=== PATIENT | male | born 1945 | race Caucasian/White ===

== ENCOUNTER → 2019-10-16 | Outpatient (CLI) | payer MEDICARE ==
[~2019-10-16] MED LIST: CYAN100050 PO; ELIQ5TAB PO; EQLTAB27 PO; FLAG500T PO; GASTROGRAFIN SOLUTION 30ML (Q9963) ONE; HYDR25TAB PO; ISOVUE-370 76% 100ML VIAL ONE; LISI-538 PO; LISI10TA4 PO; PROB250C PO; PURE500C5 PO; REDCAP3 PO
--- NOTE | 2019-12-04 11:00 | REP ---
CT OF THE CHEST, ABDOMEN AND PELVIS WITH IV AND BOWEL CONTRAST: HISTORY: Chronic leukemia. There are no comparison studies. CT OF THE CHEST WITH IV CONTRAST: There are no lung masses or nodules. There are no infiltrates or pleural effusions. There is no lymph node enlargement in the mediastinum, right or left lucie or right or left axilla. The thoracic aorta is unremarkable except for occasional small calcific plaques. Cardiac size is normal. There is no pericardial effusion. No lytic, blastic or destructive skeletal changes are identified. IMPRESSION: Essentially negative CT study of the chest. CT OF THE ABDOMEN AND PELVIS WITH IV AND BOWEL CONTRAST: There are no comparison studies. FINDINGS: There is a tiny 3 mm hypodensity in the dome of the liver, nonspecific. The hepatic parenchyma is otherwise homogeneous. There is a faintly visible 1.5 cm density near the neck of the gallbladder which could represent a faintly visible gallbladder calculus or a sludge ball. The gallbladder is otherwise unremarkable. (Please See Next Page) The pancreas is unremarkable. The spleen is borderline enlarged, measuring 16 cm in craniocaudad length and is homogeneous and otherwise unremarkable. There is no adrenal nodule or mass. There are no renal masses or cysts. No hydronephrosis or perinephric stranding. The abdominal aorta is unremarkable. There is no periaortic adenopathy or mass. There is wall thickening of the terminal ileum with luminal narrowing. This is nonspecific and could represent peristalsis, inflammation (chronic vs acute) or neoplasm. There are multiple diverticula in the descending colon and sigmoid colon. There is no pericolonic inflammation or abscess. There is no ascites. There is no bowel distention or obstruction. PELVIS: The bladder is unremarkable. There is no ascites. There is no adenopathy. There are small calcific densities in the femoral heads bilaterally, nonspecific, bone islands versus skeletal blastic metastases as well as a focal calcific density in the left acetabulum. IMPRESSION: There is wall thickening and luminal narrowing of the terminal ileum. This is nonspecific and could represent acute versus chronic inflammation versus neoplasm. There is no pelvic or abdominal adenopathy. There is no ascites. There is a gallbladder calculus versus sludge ball. There are small calcific densities in the femoral heads bilaterally and in the left acetabulum. These could be bone islands or blastic metastases. Diverticulosis without CT evidence of diverticulitis. Spleen is borderline enlarged. There are degenerative changes throughout the lumbar spine. MTDD
== END ==
LOC: M RAD 08:01
PROVIDERS: ATTEND Internal Medicine Hematology & Oncology
DX: C91.10 Chronic lymphocytic leukemia of B-cell type not having achieved remission (principal); D72.829 Elevated white blood cell count, unspecified; Z86.718 Personal history of other venous thrombosis and embolism
CPT/HCPCS: 74177; Q9963; Q9967

== ENCOUNTER → 2020-01-20 | Outpatient (CLI) | payer MEDICARE ==
[~2020-01-20] MED LIST changes: -GASTROGRAFIN SOLUTION 30ML (Q9963) ONE; -ISOVUE-370 76% 100ML VIAL ONE
== END ==
LOC: M LABSMTC 09:56
PROVIDERS: ATTEND Anesthesiology
DX: Z01.818 Encounter for other preprocedural examination (principal)
CPT/HCPCS: C9803; U0003

== ENCOUNTER 2020-01-25 10:45 | Day surgery (SDC) | payer MEDICARE ==
[~2020-01-25] VITALS: Ht 177.8 cm; Wt 111.5 kg
[~2020-01-25 10:45] MED LIST changes: +LIDOCAINE 2% 100MG/5ML SDV (FOR ANES.) As Ordered ONE; +NS 1,000 ML IV ONE; +propofoL 200 MG/20 ML VIAL As Ordered ONE
--- NOTE | 2020-01-25 12:15 | ROOR ---
Patient Name: Raleigh Sigala Procedure Date: 01/25/2020 11:55 AM Date of : 1945 Age: 74 Room: [facility] Gender: Male Note Status: Finalized Procedure: Total Colonoscopy to cecum + Bx. Indications: High risk colon cancer surveillance: Personal history of colonic polyps, Last colonoscopy: 2015 Providers: Navarro Lyons MD Referring MD: FERNANDO ROSENTHAL DO Requesting Provider: Medicines: Monitored Anesthesia Care Complications: No immediate complications. Procedure: Pre-Anesthesia Assessment: - The heart rate, respiratory rate, oxygen saturations, blood pressure, adequacy of pulmonary ventilation, and response to care were monitored throughout the procedure. The Colonoscope was introduced through the anus and advanced to the cecum, identified by appendiceal orifice and ileocecal valve. The colonoscopy was performed without difficulty. The patient tolerated the procedure well. The quality of the bowel preparation was excellent. Findings: The perianal and digital rectal examinations were normal. Non-bleeding internal hemorrhoids were found during retroflexion. The hemorrhoids were small and Grade I (internal hemorrhoids that do not prolapse). Multiple small and large-mouthed diverticula were found in the recto-sigmoid colon, sigmoid colon and descending colon. The exam was otherwise without abnormality on direct and retroflexion views. An area of moderately nodular mucosa was found at the appendiceal orifice. Biopsies were taken with a cold forceps for histology. The exam was otherwise without abnormality. Impression: - Non-bleeding internal hemorrhoids. - Diverticulosis in the recto-sigmoid colon, in the sigmoid colon and in the descending colon. - The examination was otherwise normal on direct and retroflexion views. - Nodular mucosa at the appendiceal orifice. Biopsied. - The examination was otherwise normal. - The exam was otherwise normal to the cecum. Recommendation: - Patient has a contact number available for emergencies. The signs and symptoms of potential delayed complications were discussed with the patient. Return to normal activities tomorrow. Written discharge instructions were provided to the patient. - High fiber diet. - Discharge patient to home. - Continue present medications. - Await pathology results. - Telephone GI clinic for pathology results in 1 week. - Return to referring physician. - The findings and recommendations were discussed with the patient. Navarro Lyons MD Navarro Lyons MD 01/25/2020 12:14:39 PM Electronically signed by Navarro Lyons MD Number of Addenda: 0 Note Initiated On: 01/25/2020 11:55 AM Estimated Blood Loss: Estimated blood loss: none.
[2020-01-25 12:41] VITALS: BP 127/61
== END 2020-01-25 12:43 | disposition home or self-care (01) ==
LOC: M OPP 10:45
PROVIDERS: ATTEND Internal Medicine Gastroenterology
DX: Z12.11 Encounter for screening for malignant neoplasm of colon (principal); Z86.010 Personal history of colon polyps; K63.89 Other specified diseases of intestine; K57.30 Diverticulosis of large intestine without perforation or abscess without bleeding; K64.0 First degree hemorrhoids; Z79.899 Other long term (current) drug therapy; Z87.891 Personal history of nicotine dependence

== ENCOUNTER → 2020-04-08 | Outpatient (REF) | payer MEDICARE ==
[~2020-04-08] MED LIST changes: -LIDOCAINE 2% 100MG/5ML SDV (FOR ANES.) As Ordered ONE; -NS 1,000 ML IV ONE; -propofoL 200 MG/20 ML VIAL As Ordered ONE
== END ==
LOC: M LAB REF 08:44
PROVIDERS: ATTEND Dermatology
DX: C44.319 Basal cell carcinoma of skin of other parts of face (principal); L90.5 Scar conditions and fibrosis of skin

== ENCOUNTER → 2022-04-12 | Outpatient (CLI) | payer MEDICARE ==
[~2022-04-12] MED LIST changes: +ASCO500C3 PO; +HYDR-3490 PO; -HYDR25TAB PO; -LISI-538 PO; +LISI10TA22 PO; -LISI10TA4 PO; +LISI20TA33 PO; -PURE500C5 PO
== END ==
LOC: M RAD 10:22
PROVIDERS: ATTEND Surgery Vascular Surgery
DX: I65.23 Occlusion and stenosis of bilateral carotid arteries (principal)

== ENCOUNTER → 2022-09-06 | Outpatient (CLI) | payer MEDICARE ==
[~2022-09-06] MED LIST changes: +CYAN-1 PO; -CYAN100050 PO
== END ==
LOC: M PLARAD 12:19
PROVIDERS: ATTEND Nurse Practitioner Adult Health
DX: E29.1 Testicular hypofunction (principal)

== ENCOUNTER → 2022-09-26 | Outpatient (CLI) | payer MEDICARE | LOC: M RAD 12:34 | PROVIDERS: ATTEND Nurse Practitioner Adult Health | DX: I82.4Y2 Acute embolism and thrombosis of unspecified deep veins of left proximal lower extremity (principal) ==

== ENCOUNTER → 2023-02-15 | Outpatient (REF) | payer MEDICARE ==
[2023-02-15 18:50] LABS: APPEARANCE, URINE HAZY (CLEAR); BACTERIA, URINE AUTO NEGATIVE (NEGATIVE); BILIRUBIN, URINE AUTO NEGATIVE (NEGATIVE); BLOOD, URINE BLOOD NEGATIVE (NEGATIVE); COLOR, URINE YELLOW (YELLOW); GLUCOSE, URINE (UA) AUTO NEGATIVE (NEGATIVE); KETONE, URINE AUTO NEGATIVE (NEGATIVE); LEUKOCYTE ESTERASE, URINE AUTO NEGATIVE (NEGATIVE); MUCUS, URINE SMALL (NEGATIVE); NITRITE, URINE AUTO NEGATIVE (NEGATIVE); PROTEIN, URINE AUTO 1+ mg/dL (NEGATIVE); RBC, URINE AUTO 2 /HPF (0-3); SPECIFIC GRAVITY URINE AUTO 1.021 (1.002-1.035); SQUAMOUS EPITHELIAL CELL UR AU 1 /HPF (0-6); UROBILINOGEN, URINE AUTO 0.2 mg/dL (0.0-2.0); WBC, URINE AUTO 1 /HPF (0-3)
[2023-02-15 19:08] LABS: BASO % 0.2 % (0.0-1.0); EOS % 0.1 % (0.0-3.0); HEMATOCRIT 39.6 % (42.0-52.0); HEMOGLOBIN 12.8 g/dl (13.5-17.5); LYMPH # 9.9 10^3/uL (1.5-5.0); LYMPH % 70.4 % (24.0-44.0); MEAN CORPUSCULAR HEMOGLOBIN 31.8 pg (27.0-33.0); MEAN CORPUSCULAR HGB CONC 32.3 g/dl (32.0-36.5); MEAN CORPUSCULAR VOLUME 98.5 fl (80.0-96.0); MONO # 0.9 10^3/uL (0.0-0.8); MONO % 6.3 % (2.0-8.0); NEUTROPHILS # 3.2 10^3/uL (1.5-8.5); NEUTROPHILS % 22.9 % (36.0-66.0); PLATELET COUNT, AUTOMATED 128 10^3/uL (150-450); RED BLOOD COUNT 4.02 10^6/uL (4.30-6.10); WHITE BLOOD COUNT 14.1 10^3/uL (4.0-10.0)
[2023-02-15 19:12] LABS: TOTAL PROTEIN,RANDOM URINE 78.6 MG/DL (0.0-14.0)
[2023-02-15 19:13] LABS: ERYTHROCYTE SEDIMENTATION RATE 18 mm/hr (0-20); URIC ACID 7.8 MG/DL (3.7-9.2)
[2023-02-15 19:15] LABS: C REACTIVE PROTEIN QUANTITATIV < 0.40 MG/DL (<1.0)
[2023-02-15 19:16] LABS: COMPLEMENT C4 20.9 MG/DL (12-36); CREATININE,RANDOM URINE 170.5 MG/DL; IMMUNOGLOBULIN A 105.6 MG/DL (40-350); IMMUNOGLOBULIN G 1528 MG/DL (650-1600)
[2023-02-15 19:17] LABS: ALBUMIN 4.4 G/DL (3.2-5.2); ALKALINE PHOSPHATASE 61 U/L (46-116); ALT/SGPT 26 U/L (7.0-40); AST/SGOT 19 U/L (<34); BILIRUBIN,TOTAL 0.5 MG/DL (0.3-1.2); BLOOD UREA NITROGEN 30 MG/DL (9-23); CALCIUM LEVEL 9.3 MG/DL (8.3-10.6); CARBON DIOXIDE LEVEL 26 MMOL/L (20-31); CHLORIDE LEVEL 105 MMOL/L (98-107); CREATININE FOR GFR 1.13 MG/DL (0.70-1.30); GLOMERULAR FILTRATION RATE > 60.0 (>42); GLUCOSE, FASTING 96 MG/DL (74-106); POTASSIUM SERUM 4.6 MMOL/L (3.5-5.1); SODIUM LEVEL 139 MMOL/L (136-145); TOTAL PROTEIN 7.6 G/DL (5.7-8.2)
[2023-02-15 19:56] LABS: HEPATITIS C VIRUS ABY INDEX 0.09 INDEX (<0.8)
[2023-02-15 19:57] LABS: HEPATITIS B CORE ANTIBODY IGM NEGATIVE (NEGATIVE)
[2023-02-23 08:10] LABS: COMPLEMENT TOTAL (CH50) > 60 U/mL (>41)
== END ==
LOC: M SFHCRHEU 12:53
PROVIDERS: ATTEND Internal Medicine Rheumatology
DX: R76.8 Other specified abnormal immunological findings in serum (principal); E79.0 Hyperuricemia without signs of inflammatory arthritis and tophaceous disease; M25.50 Pain in unspecified joint; Z79.01 Long term (current) use of anticoagulants; Z79.899 Other long term (current) drug therapy

== ENCOUNTER → 2023-02-20 | Outpatient (CLI) | payer MEDICARE | LOC: M RAD 11:23 | PROVIDERS: ATTEND Internal Medicine Rheumatology | DX: R76.8 Other specified abnormal immunological findings in serum (principal); M25.50 Pain in unspecified joint ==

== ENCOUNTER → 2023-06-19 | Outpatient (CLI) | payer MEDICARE | LOC: M RAD 11:12 | PROVIDERS: ATTEND Surgery Vascular Surgery | DX: I65.23 Occlusion and stenosis of bilateral carotid arteries (principal) ==

== ENCOUNTER → 2024-06-10 | Outpatient (CLI) | payer MEDICARE ==
[~2024-06-10] MED LIST changes: +B-122500 PO; +GNP250TA9 PO
== END ==
LOC: M RAD 10:51
PROVIDERS: ATTEND Surgery Vascular Surgery
DX: I65.23 Occlusion and stenosis of bilateral carotid arteries (principal)

== ENCOUNTER 2024-12-28 11:36 | Day surgery (SDC) | payer MEDICARE ==
[~2024-12-28] VITALS: Ht 172.7 cm; Wt 105.7 kg
[~2024-12-28 11:36] MED LIST changes: +LIDOCAINE 2% 100 MG/5 ML SDV (FOR ANES.) As Ordered ONE; +THERTAB52 PO
[2024-12-28 13:35] VITALS: BP 168/74; TEMP 97.1; O2SAT 95
== END 2024-12-28 13:45 | disposition home or self-care (01) ==
LOC: M OPP 11:36
PROVIDERS: ATTEND Internal Medicine Gastroenterology
DX: Z12.11 Encounter for screening for malignant neoplasm of colon (principal); C20 Malignant neoplasm of rectum; K56.690 Other partial intestinal obstruction; K57.30 Diverticulosis of large intestine without perforation or abscess without bleeding; K64.0 First degree hemorrhoids; Z86.0100 Personal history of colon polyps, unspecified; Z79.01 Long term (current) use of anticoagulants; Z79.899 Other long term (current) drug therapy

== ENCOUNTER → 2025-01-19 | Outpatient (CLI) | payer MEDICARE ==
[~2025-01-19] MED LIST changes: -LIDOCAINE 2% 100 MG/5 ML SDV (FOR ANES.) As Ordered ONE
== END ==
LOC: M PLARAD 11:42
PROVIDERS: ATTEND Specialist
DX: C20 Malignant neoplasm of rectum (principal)
CPT/HCPCS: 78815; A9552

== ENCOUNTER → 2025-01-23 | Outpatient (CLI) | payer MEDICARE ==
[~2025-01-23] VITALS: Ht 177.8 cm; Wt 102.2 kg
[2025-01-23 11:45] VITALS: TEMP 98.4
[2025-01-23] MEDS: ceFAZolin SODIUM 2 GM in DEXTROSE 5% (D5W) ADV/MINI-BAG 50 ML IV ONE (12:22)
[2025-01-23] MEDS: NS (Normal Saline) 0.9% 1,000 ML IV SCH (12:23)
[2025-01-23] MEDS: MIDAZOLAM INJ 2 MG/2 ML VIAL IV PRN (13:58)
[2025-01-23] MEDS: LIDOCAINE 1% MDV 20 ML VIAL SC SCH (14:06)
[2025-01-23 14:50] VITALS: BP 150/62; O2SAT 99
== END ==
LOC: M IRPRO 11:25
PROVIDERS: ATTEND Internal Medicine Medical Oncology
DX: C20 Malignant neoplasm of rectum (principal)
CPT/HCPCS: 36561; 76937; 77001; 99152; J0688; J1642; J2250; J3010

== ENCOUNTER → 2025-01-28 | Outpatient (CLI) | payer MEDICARE ==
[~2025-01-28] MED LIST changes: +PROHANCE 279.3MG/ML 15ML VIAL As Ordered ONE; +PROHANCE 279.3MG/ML 5ML VIAL As Ordered ONE
== END ==
LOC: M RAD 07:44
PROVIDERS: ATTEND Specialist
DX: C20 Malignant neoplasm of rectum (principal); R59.0 Localized enlarged lymph nodes; N40.0 Benign prostatic hyperplasia without lower urinary tract symptoms; K40.90 Unilateral inguinal hernia, without obstruction or gangrene, not specified as recurrent
CPT/HCPCS: 72197; A9579

== ENCOUNTER → 2025-02-08 | Outpatient (POV) | payer MEDICARE ==
[~2025-02-08] MED LIST changes: +ONDA-84 PO; -PROHANCE 279.3MG/ML 15ML VIAL As Ordered ONE; -PROHANCE 279.3MG/ML 5ML VIAL As Ordered ONE; +RED600CA7 PO; -REDCAP3 PO
== END ==
LOC: M IRPOV 11:00 → EDSTATUS 03-22 12:23
PROVIDERS: ATTEND Registered Nurse School
DX: Z45.2 Encounter for adjustment and management of vascular access device (principal); C20 Malignant neoplasm of rectum; Z79.01 Long term (current) use of anticoagulants; Z79.899 Other long term (current) drug therapy; Z87.891 Personal history of nicotine dependence

== ENCOUNTER 2025-02-10 15:12 | Outpatient (RCR) | payer MEDICARE ==
[~2025-02-10 15:12] MED LIST changes: -ONDA-84 PO
[2025-02-15] MEDS ORDERED: PROCHLORPERAZINE 5MG TAB PO SCH
[2025-02-17] MEDS ORDERED: PROCHLORPERAZINE 5MG TAB PO SCH
[2025-02-18 11:46] LABS: BASO # 0.0 10^3/uL (0.0-0.2); BASO % 0.1 % (0.0-1.0); EOS # 0.0 10^3/uL (0.0-0.5); EOS % 0.2 % (0.0-3.0); LYMPH # 6.4 10^3/uL (1.5-5.0); LYMPH % 62.8 % (24.0-44.0); MONO # 0.4 10^3/uL (0.0-0.8); MONO % 3.6 % (2.0-8.0); NEUTROPHILS # 3.4 10^3/uL (1.5-8.5); NEUTROPHILS % 33.2 % (36.0-66.0); PLATELET COUNT, AUTOMATED 122 10^3/uL (150-450)
[2025-02-18 12:14] LABS: ALT/SGPT 21.0 U/L (7.0-40); AST/SGOT 20.0 U/L (<34); CALCIUM LEVEL 9.5 MG/DL (8.3-10.6); CARBON DIOXIDE LEVEL 28.0 MMOL/L (20-31); CHLORIDE LEVEL 106.0 MMOL/L (98-107); CREATININE FOR GFR 1.1 MG/DL (0.70-1.30); GLOMERULAR FILTRATION RATE 69.1 (>42); POTASSIUM SERUM 4.7 MMOL/L (3.5-5.1); SODIUM LEVEL 143.0 MMOL/L (136-145)
[2025-02-22] MEDS ORDERED: PROCHLORPERAZINE 5MG TAB PO SCH
[2025-02-22] MEDS ORDERED: ONDA-84 PO (11:02)
[2025-02-24] MEDS ORDERED: PROCHLORPERAZINE 5MG TAB PO SCH
== END 2025-02-14 ==
LOC: M ONCR 15:12
PROVIDERS: ATTEND General Practice
DX: Z51.0 Encounter for antineoplastic radiation therapy (principal); C20 Malignant neoplasm of rectum

== ENCOUNTER → 2025-02-10 | Outpatient (CLI) | payer MEDICARE | LOC: M ONCR 14:12 | PROVIDERS: ATTEND General Practice | DX: C20 Malignant neoplasm of rectum (principal); Z85.828 Personal history of other malignant neoplasm of skin; Z80.3 Family history of malignant neoplasm of breast; Z87.891 Personal history of nicotine dependence; Z79.01 Long term (current) use of anticoagulants; Z79.899 Other long term (current) drug therapy ==

== ENCOUNTER → 2025-03-17 | Outpatient (RCR) | payer MEDICARE ==
[~2025-03-17] MED LIST changes: +ONDA-84 PO
== END ==
LOC: M ONCR 02-15 09:50
PROVIDERS: ATTEND General Practice
DX: Z51.0 Encounter for antineoplastic radiation therapy (principal); C20 Malignant neoplasm of rectum